=== PATIENT | female | born 1935 | race Caucasian/White ===

== ENCOUNTER 2022-05-24 12:53 | Outpatient (RCR) | payer OTHER, SELFPAY | END 2023-02-08 23:59 | disposition home or self-care (01) | PROVIDERS: PCP Family Medicine; Visit Provider Family Medicine | DX: F03.B0 Unspecified dementia, moderate, without behavioral disturbance, psychotic disturbance, mood disturbance, and anxiety (principal); Z51.89 Encounter for other specified aftercare | CPT/HCPCS: 97165; 97535 ==

== ENCOUNTER 2022-09-15 15:01 | Outpatient (REF) | payer OTHER, SELFPAY ==
[2022-09-15 15:21] LABS: Appearance Urine Cloudy (Clear); Bilirubin Urine Negative (Negative); Blood Urine Trace-lysed (Negative); Color Urine Yellow (Yellow); Glucose Urine Negative (Negative); Ketones Urine Negative (Negative); Leukocyte Esterase Urine 1+ (Negative); Nitrite Urine Negative (Negative); Protein Urine 1+ (Negative); Specific Gravity Urine 1.015 (1.000-1.030); Urobilinogen Urine 0.2 (0.2-1.0); pH Urine 8.5 (5.0-8.5)
[2022-09-15 16:13] LABS: Bacteria Urine Many; Squamous Epithelial Cell Urine Few (None-Few); Triple Phosphate Crystal Urine Moderate
== END 2022-09-15 15:02 | disposition home or self-care (01) ==
LOC: NPINS 15:01
PROVIDERS: PCP Family Medicine; Visit Provider Family Medicine
DX: R41.0 Disorientation, unspecified (principal); R32 Unspecified urinary incontinence
CPT/HCPCS: 81001; 87086

== ENCOUNTER 2023-02-07 13:55 | Outpatient (REF) | payer OTHER, SELFPAY ==
[2023-02-07 14:39] LABS: Chloride* 93 mmol/L (96-114); Sodium* 132 mmol/L (135-149)
[2023-02-07 14:42] LABS: Blood Urea Nitrogen* 28 mg/dL (7-30); Carbon Dioxide* 29 mmol/L (20-32); Creatinine* 0.9 mg/dL (0.5-1.5); Estimated Glomerular Filt Rate 62 ml/min; Glucose* 97 mg/dL (60-115)
== END 2023-02-07 13:56 | disposition home or self-care (01) ==
LOC: NPINS 13:55
PROVIDERS: PCP Family Medicine; Visit Provider Nurse Practitioner Gerontology
DX: E87.1 Hypo-osmolality and hyponatremia (principal); R41.0 Disorientation, unspecified
CPT/HCPCS: 80048

== ENCOUNTER 2023-02-08 08:02 | Outpatient (REF) | payer OTHER, SELFPAY ==
[2023-02-08 08:16] LABS: Bilirubin Urine Negative (Negative); Blood Urine Negative (Negative); Color Urine Yellow (Yellow); Glucose Urine Negative (Negative); Ketones Urine Negative (Negative); Leukocyte Esterase Urine Negative (Negative); Nitrite Urine Negative (Negative); Protein Urine Negative (Negative); Specific Gravity Urine 1.015 (1.000-1.030); Urobilinogen Urine 0.2 (0.2-1.0); pH Urine 8.5 (5.0-8.5)
[2023-02-08 08:20] LABS: Appearance Urine Slightly Cloudy (Clear)
[2023-02-08 08:24] LABS: Bacteria Urine Many; RBC Urine 0-2 (0-2); Squamous Epithelial Cell Urine Few (None-Few)
== END 2023-02-08 08:03 | disposition home or self-care (01) ==
LOC: NPINS 08:02
PROVIDERS: PCP Family Medicine; Visit Provider Family Medicine
DX: R41.0 Disorientation, unspecified (principal)
CPT/HCPCS: 81003; 81015; 87086

== ENCOUNTER 2023-08-22 15:39 | Outpatient (REF) | payer OTHER, SELFPAY ==
[2023-08-22 16:14] LABS: Basophils Absolute Auto 0.05 K/uL (0.00-0.30); Basophils Percent Auto 0.6 % (0.0-3.0); Eosinophils Absolute Auto 0.47 K/uL (0.00-0.50); Eosinophils Percent Auto 5.5 % (0.0-7.0); Hematocrit 37.2 % (33.0-51.0); Immature Granulocytes Pct Auto 1.2 %; Lymphocytes Percent Auto 16.5 % (20-44); Mean Corpuscular HGB Conc 32 gm/dL (32-36); Mean Corpuscular Hemoglobin 30 pg (26-34); Mean Corpuscular Volume 93 fL (80-100); Monocytes Percent Auto 11.8 % (0.0-11.0); Neutrophils Absolute Auto 5.54 K/uL (1.7-7.0); Neutrophils Percent Auto 64.4 % (42.0-72.0); Platelet Count* 221 K/uL (140-440); RDW Coefficient of Variation % 13.4 % (11.5-15.5); Red Blood Count 3.99 m/uL (4.00-5.20); White Blood Count* 8.59 K/uL (4.50-11.00)
[2023-08-22 16:15] LABS: Slide Review Reflex No
[2023-08-22 16:38] LABS: Chloride* 98 mmol/L (96-114); Sodium* 134 mmol/L (135-149)
[2023-08-22 16:40] LABS: Creatinine* 1.2 mg/dL (0.5-1.5); Estimated Glomerular Filt Rate 44 ml/min
[2023-08-22 17:13] LABS: Potassium* 4.5 mmol/L (3.6-5.1)
[2023-08-22 17:15] LABS: Anion Gap 10 mEq/L (7-15); Blood Urea Nitrogen* 28 mg/dL (7-30); Carbon Dioxide* 26 mmol/L (20-32)
[2023-08-22 17:16] LABS: Calcium* 9.1 mg/dL (8.4-10.6); Glucose* 104 mg/dL (60-115)
== END 2023-08-22 15:40 | disposition home or self-care (01) ==
LOC: NPINS 15:39
PROVIDERS: PCP Family Medicine; Visit Provider Nurse Practitioner Gerontology
DX: R47.81 Slurred speech (principal); R53.1 Weakness
CPT/HCPCS: 80048; 85025

== ENCOUNTER 2024-03-08 10:20 | Outpatient (REF) | payer OTHER, SELFPAY ==
[2024-03-08 10:33] LABS: Appearance Urine Cloudy (Clear); Bilirubin Urine Negative (Negative); Blood Urine Trace-intact (Negative); Color Urine Light yellow (Yellow); Glucose Urine Negative (Negative); Ketones Urine Negative (Negative); Leukocyte Esterase Urine 1+ (Negative); Nitrite Urine Positive (Negative); Protein Urine Negative (Negative); Specific Gravity Urine 1.015 (1.000-1.030); Urobilinogen Urine 0.2 (0.2-1.0)
[2024-03-08 11:06] LABS: Amorphous Sediment Urine Moderate; Bacteria Urine Many; RBC Urine 0-2 (0-2); Squamous Epithelial Cell Urine Few (None-Few)
== END 2024-03-08 10:21 | disposition home or self-care (01) ==
LOC: NPINS 10:20
PROVIDERS: PCP Family Medicine; Visit Provider Nurse Practitioner Gerontology
DX: R35.0 Frequency of micturition (principal); R30.0 Dysuria
CPT/HCPCS: 81001; 87086; 87186

== ENCOUNTER 2024-03-25 12:00 | Outpatient (REF) | payer OTHER, SELFPAY ==
[2024-03-25 13:30] LABS: Albumin* 5.1 g/dL (3.3-5.0); Chloride* 96 mmol/L (96-114)
[2024-03-25 13:31] LABS: Basophils Absolute Auto 0.07 K/uL (0.00-0.30); Basophils Percent Auto 0.6 % (0.0-3.0); Eosinophils Absolute Auto 0.34 K/uL (0.00-0.50); Eosinophils Percent Auto 3.2 % (0.0-7.0); Hemoglobin* 13.3 gm/dL (12.0-16.0); Immature Granulocytes Abs Auto 0.04 K/uL (0.00-0.30); Immature Granulocytes Pct Auto 0.4 %; Lymphocytes Percent Auto 16.5 % (20-44); Mean Corpuscular HGB Conc 32 gm/dL (32-36); Mean Corpuscular Hemoglobin 30 pg (26-34); Mean Corpuscular Volume 93 fL (80-100); Monocytes Percent Auto 10.1 % (0.0-11.0); Neutrophils Absolute Auto 7.45 K/uL (1.7-7.0); Neutrophils Percent Auto 69.2 % (42.0-72.0); Platelet Count* 236 K/uL (140-440); Potassium* 4.4 mmol/L (3.6-5.1); Red Blood Count 4.39 m/uL (4.00-5.20); Sodium* 133 mmol/L (135-149); White Blood Count* 10.77 K/uL (4.50-11.00)
[2024-03-25 13:33] LABS: Alanine Aminotransferase* 13 U/L (4-35); Alkaline Phosphatase* 49 U/L (40-150); Anion Gap 9 mEq/L (7-15); Aspartate Amino Transferase* 26 U/L (12-35); Bilirubin Direct* 0.3 mg/dL (0.0-0.5); Bilirubin Total* 0.5 mg/dL (0.1-1.5); Blood Urea Nitrogen* 21 mg/dL (7-30); Calcium* 9.7 mg/dL (8.4-10.6); Carbon Dioxide* 28 mmol/L (20-32); Creatinine* 0.8 mg/dL (0.5-1.5); Estimated Glomerular Filt Rate 71 ml/min; Glucose* 76 mg/dL (60-115); Total Protein* 7.7 g/dL (6.0-8.3)
[2024-03-25 13:34] LABS: Slide Review Reflex No
== END 2024-03-25 12:01 | disposition home or self-care (01) ==
LOC: NPINS 12:00
PROVIDERS: PCP Family Medicine; Visit Provider Nurse Practitioner Gerontology
DX: R68.89 Other general symptoms and signs (principal)
CPT/HCPCS: 80048; 80076; 85025

== ENCOUNTER 2024-04-26 15:28 | Outpatient (REF) | payer OTHER, SELFPAY ==
[2024-04-26 15:50] LABS: Appearance Urine Cloudy (Clear); Bilirubin Urine Negative (Negative); Blood Urine Negative (Negative); Color Urine Yellow (Yellow); Glucose Urine Negative (Negative); Ketones Urine Trace (Negative); Leukocyte Esterase Urine 1+ (Negative); Nitrite Urine Negative (Negative); Protein Urine 2+ (Negative); Specific Gravity Urine 1.025 (1.000-1.030); Urobilinogen Urine 0.2 (0.2-1.0); pH Urine 6.5 (5.0-8.5)
[2024-04-26 15:59] LABS: RBC Urine 0-2 (0-2)
[2024-04-26 16:00] LABS: Bacteria Urine Many
== END 2024-04-26 15:29 | disposition home or self-care (01) ==
LOC: NPINS 15:28
PROVIDERS: PCP Family Medicine; Visit Provider Nurse Practitioner Gerontology
DX: R41.82 Altered mental status, unspecified (principal); R41.0 Disorientation, unspecified; R39.198 Other difficulties with micturition
CPT/HCPCS: 81001; 87086